=== PATIENT | male | born 1980 | race Caucasian/White ===

== ENCOUNTER 2022-04-24 08:26 | Outpatient (CLI) | payer BC, SELFPAY ==
--- NOTE | 2022-04-24 08:45 | XR_ITS ---
WS: [id number] Exam: XR hip RT 2-3V wo/w pel* [id number] Date/Time of Exam: 04/24/2022 8:48 AM Reason For Exam: hip pain No acute fracture or dislocation noted. The joint compartments are well-maintained. Soft tissue calci fication seen along the lesser trochanter and superior lateral acetabulum. XR/XR hip RT 2-3V wo/w pel* [id number] IMPRESSION: 1. No sign of hip fracture or other significant finding.
--- NOTE | 2022-04-24 08:45 | XR_ITS ---
WS: [id number] Exam: XR ankle RT min 3V* [id number] Date/Time of Exam: 04/24/2022 8:48 AM Reason For Exam: ankle pain Comparison 01/25/2017. No acute fracture or dislocation. 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 Post traumatic degenerative change of the ankle mortise, talar dome and subtalar joints. No soft tissue fo reign bodies. Plantar heel spur. XR/XR ankle RT min 3V* [id number] IMPRESSION: 1. No acute fracture. 2. 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 Posttraumatic degenerative change s of the ankle mortise and subtalar joint.
== END 2022-04-24 08:27 | disposition home or self-care (01) ==
PROVIDERS: PCP Family Medicine; Visit Provider Family Medicine
DX: M25.571 Pain in right ankle and joints of right foot (principal); M25.551 Pain in right hip; M19.90 Unspecified osteoarthritis, unspecified site
CPT/HCPCS: 73502; 73610; 80053; 80061

== ENCOUNTER 2022-05-07 15:35 | Outpatient (CLI) | payer BC, SELFPAY ==
--- NOTE | 2022-05-07 16:00 | MR_ITS ---
WS: [id number] MRI RIGHT ANKLE without CONTRAST. COMPARISON: 04/24/2022 Multiplanar, multisequence imaging is performed without contrast. History: Chronic ankle pain. No acute injury. No acute fractures or marrow edema. Tibiotalar joint space abnormalities. Narrowing of the joint spac e with mild loss of cartilage. Large mid talar dome defect and osteochondral lesion measuring 9.7 mm. There is additional edema in the lateralmost talar dome with asymmetric joint space narrowing. Well- circumscribed, 9 mm osseous density distal to the fibula is probably an ununited fracture from the fi bula. This was also seen radiographically. This is not an acute injury. There is a very tiny amount o f increased signal in the distal fibula with loss of the normal cortex. Calcaneus is negative. Mild n arrowing of the intertarsal joint spaces. There is a small amount of edema along the lateral ankle. No significant joint effusion. Peroneus demi vis and longus negative. There is a very small amount of fluid within the tendon sheaths and surround ing the flexor hallucis longus, flexor digitorum longus and the posterior tibial tendons. Consistent with mild tenosynovitis. No tendon tears are identified. The extensor tendons are negative. Normal striations within the deltoid ligament. Anterior talofibular ligament has increased signal wit h loss of the normal striations suggest an chronic injury. There are mild fibrotic changes. Normal an terior tibiofibular ligament is not identified. There is increased signal in the expected location. N ormal posterior tibiofibular ligament. MR/MR ankle RT wo con* [id number] IMPRESSION: 1. Moderate degenerative changes at the tibiotalar joint space. There is loss of cartilage with asymmetric joint space narrowing. 2. Osteochondral lesion measuring 9.7 mm along the mid talar dome with additio nal edema in the lateral talar dome. Suspect there is a loose body which is not identified. 3. Intertarsal mild osteoarthritis. 4. Mild tenosynovitis within the flexor hallucis longus, digitorum longus and the posterior tibial tendons. 5. Normal peroneal brevis and longus tendons. 6. Abnormal anterior tibiofibular ligament. The ligament is not identified and probably torn. The posterior tibiofibular ligament is normal. 7. No significant joint effusion. 8. No marrow edema or acute fracture. Chronic avulsion fracture distal fibula.
== END 2022-05-07 15:36 | disposition home or self-care (01) ==
PROVIDERS: PCP Family Medicine; Visit Provider Family Medicine
DX: S82.831A Other fracture of upper and lower end of right fibula, initial encounter for closed fracture (principal); X58.XXXA Exposure to other specified factors, initial encounter; M65.871 Other synovitis and tenosynovitis, right ankle and foot; M19.071 Primary osteoarthritis, right ankle and foot
CPT/HCPCS: 73721

== ENCOUNTER 2022-06-01 17:32 | Emergency (ER) | payer BC, SELFPAY ==
[2022-06-01 17:36] VITALS: BP 203/121; PULSE 89; RESP 16; TEMP 36.7; O2SAT 96; BMI 46.5
--- NOTE | 2022-06-01 18:02 | ED_ITS ---
HPI - Wound/Laceration General: Chief Complaint: Wound/Laceration Stated Complaint: right arm lac Time Seen by Provider: 06/01/22 17:49 History of Present Illness: Patient is a 42-year-old male who comes to the ED with laceration to right arm. Patient has a quail pen and and he lifted the tin metal lid and one of the quail flew out. He went to grab the quail and accidentally cut his right forearm on a piece of metal. He was able to control bleeding with pressure bandage. Patient is unsure of last tetanus. Associated symptoms: Denies chills, fever(s), nausea or vomiting Review of Systems Const: Denies: fever(s), chills or fatigue Eyes: Denies: change in vision or eye discomfort ENMT: Denies: throat pain, odynophagia, nasal discharge or nasal congestion Card: Denies: chest pain, palpitations, edema, swelling of feet/ankles, dyspnea on exertion or orthopnea Resp: Denies: dyspnea, productive cough or non-productive cough GI: Denies: abdominal pain, nausea, vomiting, diarrhea, constipation or hematochezia : Denies: flank pain, difficulty urinating, dysuria or hematuria Musc: Denies: neck pain, back pain or extremity swelling Skin/Breast: Reports: new lesions (Laceration right arm); Denies: rash Neuro: Denies: headache(s), numbness in extremities or weakness in extremities [facility] ED PFSH: Medical History (Updated 06/02/22 @ 00:21 by SEBAS Antonio) No pertinent family history Surgical History (Updated 06/02/22 @ 00:21 by SEBAS Antonio) No pertinent past surgical history Physical Exam Const: COMMON NORMALS: patient oriented x3 HENMT: COMMON NORMALS: normocephalic HEAD & SCALP: normocephalic MOUTH: Normal oral and palatal mucosa present THROAT: posterior oropharynx normal and uvula midline Neck/C-Spine: COMMON NORMALS: supple GENERAL: Yes normal visual inspection Resp: COMMON NORMALS: normal respiratory effort, No retractions, No use of accessory muscles and clear to auscultation bilaterally AUSCULTATION: clear to auscultation bilaterally Cardio: COMMON NORMALS: regular rate, regular rhythm, S1 normal heart sound present, S2 normal heart sound present, No gallops present (Cardio), No clicks present (Cardio), No murmurs present (Cardio) and Peripheral pulses 2+ throughout RATE: regular rate RHYTHM: regular rhythm HEART SOUNDS: S1 normal heart sound present and S2 normal heart sound present PERIPHERAL PULSES: Peripheral pulses 2+ throughout GI: COMMON NORMALS: Normal to inspection, nondistended, normoactive bowel sounds present, Soft to palpation, non-tender and no masses PALPATION: Yes Soft to palpation : COMMON NORMALS: Yes no CVA tenderness BLADDER/KIDNEY EXAM: Yes no CVA tenderness Back/Pelvis: COMMON NORMALS: no CVA tenderness Extremity: NARRATIVE EXTREMITY EXAM: Right forearm?2 cm superficial linear laceration noted. No active bleeding seen. No contaminants. Neuro: COMMON NORMALS: patient oriented x3 GAIT: Yes Normal gait present Skin: GENERAL SKIN EXAM: dry skin Procedures Laceration Laceration 1: Site: upper extremity (Forearm) Side (If applicable): right Size (cm): 2 Description: linear Depth: simple, single layer Local Anesthetic: lidocaine 1% Amount of anesthesia used (mL): 5 Pre-repair: irrigated extensively (With normal saline.) Skin layer closed with: nylon Size (cm): 4-0 Number of sutures: 6 Technique: simple, interrupted Course Vital Signs: Vital signs: Vital Signs Temperature 98.1 F 06/01/22 17:36 Pulse Rate 89 06/01/22 17:36 Respiratory Rate 16 06/01/22 17:36 Blood Pressure 203/121 06/01/22 17:36 Pulse Oximetry 96 06/01/22 17:36 Oxygen Delivery Me thod 06/01/22 17:36 MDM - Wound/Laceration Medical Decision Making Patient is a 42-year-old male comes to the ED with laceration to right forearm. He was given updated tetanus here in the ED. Laceration was cleaned and irrigated extensively with normal saline. Lidocaine 1% was used as local and 6 sutures were placed to close laceration site. See procedure note for details. Patient was discharged home instructed on how to care for laceration site. He was told to have sutures removed in the next 7 to 10 days by provider. Return ED precautions given. Patient understood and agreed with plan. Discharge Plan Discharge Patient Disposition: Home Clinical Impression: Forearm laceration Qualifiers: Encounter type: initial encounter Laterality: right Qualified Code(s): S51.811A - Laceration without foreign body of right forearm, initial encounter Condition: Stable Prescriptions: No Action meloxicam 15 mg tablet 15 mg PO ONCE 30 Days Qty: 30 2RF Discharge Orders: Discharge ED (Routine); Ordered 06/01/22 Ordered By: Oscar Childs Referrals: Manuel Chaves DO [Primary Care Provider] - Discharge Diet: Regular Discharge Activity: Limit activity as instructed Patient Instructions: Laceration (DC) Activity Restrictions/Additional Instructions: Keep laceration site clean and dry for the next 48 hours. Clean daily with soap and water and cover with bandage. Watch for signs of infection such as redness, warmth, increased tenderness and puslike drainage. If you see the signs of infection return to the ED, urgent care or PCP for reevaluation. call your PCP to schedule a follow-up appointment for reevaluation and suture removal in about 7- 10 days. Continue taking all home meds. Follow discharge plans as discussed. You can return to the ED if symptoms worsen. Coding Level of Care Code ED Instrument Lens Grinder Apprentice for Brian Watt
[2022-06-01] MEDS: tetanus-dipt-pertussis 0.5 mL SDV IM (18:18)
[2022-06-01] MEDS: lidocaine 1% INJ 10 mL (per mL) INJECTION (18:19)
== END 2022-06-01 18:35 | disposition home or self-care (01) ==
PROVIDERS: Emergency Provider Physician Assistant; PCP Family Medicine
DX: S51.811A Laceration without foreign body of right forearm, initial encounter (principal); W26.8XXA Contact with other sharp object(s), not elsewhere classified, initial encounter; Z23 Encounter for immunization
CPT/HCPCS: 12001; 90471; 90715; 99283

== ENCOUNTER 2022-10-09 05:50 | Day surgery (SDC) | payer BC, SELFPAY ==
[2022-10-09] VITALS (9 sets, daily range): BP systolic 91–159; BP diastolic 48–98; PULSE 70–88; RESP 16–18; TEMP 36.3–36.8; O2SAT 92–96
--- NOTE | 2022-10-09 | XR_ITS ---
WS: [id number] Exam: XR ankle RT 1V [id number] Date/Time of Exam: 10/09/2022 12:00 AM Reason For Exam: JAYLEEN PICS AP and lateral images of the right ankle were obtained for intraoperative purposes.
--- NOTE | 2022-10-09 06:16 | W.PM.OPSUD ---
Surgery/Procedure H&P Update DATE OF PROCEDURE: October 09, 2022 DATE H&P PERFORMED: 09/16/22 CHANGES TO PREVIOUS DOCUMENTATION: None PREOP DIAGNOSIS: Osteochondritis dissecans, right ankle PLANNED PROCEDURE: Operation Date: 10/09/22 07:00 Proposed Procedures p Right ankle scope with osteochondral defect repair 79436, M93.27(Right) - Tereso Overton DPM
--- NOTE | 2022-10-09 06:18 | PM.OP ---
Operative Report Date of procedure: October 09, 2022 Pre-op diagnosis: Preop Diagnosis Osteochondritis dissecans, right ankle Procedure done: Right ankle scope with osteochondral defect repair 2383
[2022-10-09] MEDS: gabapentin 300 mg Capsule PO (06:22)
[2022-10-09] MEDS: CELEcoxib 200 mg Capsule 400 MG PO (06:22)
[2022-10-09] MEDS: sodium chloride 0.9% 1,000 ML 30 ML IV (06:24)
--- NOTE | 2022-10-09 06:56 | ANES.PREANE2 ---
Pre-Anesthetic Assessment Height/Weight: Height 1.75 m Weight 145.15 kg Temp Pulse Resp BP Pulse Ox O2 Del Method 98.3 F 70 16 159/98 96 Room Air 10/09/22 06:06 10/09/22 06:06 10/09/22 06:06 10/09/22 06:06 10/09/22 06:06 10/09/22 06:06 Preop Diagnosis: Osteochondritis dissecans, right ankle Operation Date: 10/09/22 07:00 Proposed Procedures p Right ankle scope with osteochondral defect repair 02764, M93.27(Right) - Tereso Overton DPM Familial anesthetic complications: None Was Beta Marybeth taken within 24 hours: N/A Was Clonidine taken within 24 hours: N/A Last intake: Intake Last Liquid Date 10/08/22 Last Liquid Time 22:00 Last Solid Date 10/08/22 Last Solid Time 19:00 Social No alcohol and No tobacco Exam alert, oriented x 3, clear to auscultation bilaterally and regular rate & rhythm Airway Mallampati: Class III Dentition: full Pulmonary Sleep Apnea Metabolic Morbid Obesity Anesthetic Plan ASA status: 3 Anesthesia: General and Regional (specify below) Risk of > 500 ml blood loss (7ml/kg in children): No Medications/Allergies Home Medications Medication Instructions Recorded Confirmed Last Taken Type Custom Sole Supports #1 ea 06/08/22 10/09/22 Unknown Rx auto titrating cpap #1 ea 09/01/22 10/09/22 Unknown Rx Allergies Allergy/AdvReac Type Severity Reaction Status Date / Time No Known Allergies Allergy Verified 10/09/22 06:04 Current Medications Generic Name Dose Route Start Last Admin Trade Name Carmella PRN Reason Stop Dose Admin Sodium Chloride 1,000 mls @ 30 mls/hr 10/09/22 06:00 10/09/22 06:24 Sodium Chloride 0.9% IV 10/10/22 05:59 30 mls/hr .Q24H SARINA Administration PFSH Anesthesia Medical History No pertinent family history Surgical History No pertinent past surgical history Data Anesthesia Cardiac Studies: No Data to Display
--- NOTE | 2022-10-09 06:57 | ANES.PROC ---
Anesthesia Procedures Procedure/Date: 10/09/22 Nerve Block ^: Nerve Block 1: Main Anesthesia: general anesthesia Time Out Performed: Yes Consent: requested by attending/covering physician, from patient, from other, risks and benefits reviewed and patient agrees to proceed Nerve block location: popliteal (R) Anesthesia monitors applied: pulse oximetry, EKG, BP cuff and oxygen Nerve block position: supine Anesthetic Used: ropivicaine 0.5% (30 ml) and with decadron ( 4 mg) Ultrasound used to: recognize landmarks Nerve Stimulator Used?: No Interscalene/Femoral BLK: 4 stimuplex 21 g needle used for position and inplane approach, visualize local anesthetic spread and no vascular puncture identified Injection: neg aspiration of heme Patient Tolerated Procedure: well Complications: none
[2022-10-09] MEDS: ceFAZolin 3,000 MG in sodium chloride 0.9% (100 ml) 100 ML 200 MG IV (07:11)
--- NOTE | 2022-10-09 09:03 | P.OP_ITS ---
Operative Report Date of procedure: October 09, 2022 Pre-op diagnosis: Preop Diagnosis Osteochondritis dissecans, right ankle Post-op diagnosis: Same Post-op findings: See intraoperative report Procedure done: Right ankle scope with osteochondral defect repair. CPT code 35272 Implants: 4 nylon Arthrex bio cartilage Surgeon: Tereso Overton D.P.M. Clinical Rehabilitation Specialist: Leah Estimated blood loss: Less than 5 76 IV fluids: 5 Urine output: See intraoperative documentation Complications: None Brief History: Does not take any daily medications.? No history of adverse reaction to anesthesia.? Requesting a surgical cleanout of his right ankle.? I discussed risks versus benefits of ankle arthroscopy with extensive debridement with repair of osteochondral defect.? May require nonweightbearing for 6 weeks postoperatively given intraoperative findings.? I informed the patient that a surgical debridement of this nature and OCD repair would essentially buy him additional time and reduce his pain to some degree at best by 50%.? He is too young for total ankle replacement, does not want an ankle fusion.? He understands that further surgical intervention such as TAVR would be a option down the road.? I reviewed at length with the patient, the risks, potential complications, benefits, alternatives, expectations, and typical outcomes associated with the surgery. The risks and potential complications were explained in detail, including but not limited to infection, wound dehiscence or soft tissue complications, bleeding and hematoma, chronic edema, neuritis or nerve damage producing numbness or chronic pain, CRPS, failure to relieve pain o r worsening pain, thick / painful / unsightly scar, limited motion / stiffness, malposition, delayed union, malunion, or nonunion, fracture, reaction to implants, anesthetic complications, venous thromboembolism, and deformity recurrence.? I discussed the notion of no regrets with the patient as it pertains to complications and outcomes. The patient seemed to understand the nature of the proposed care and required convalescence. They asked appropriate questions, answered to their satisfaction. They are aware no guarantees can be made as to a satisfactory outcome and they understand there may be other possible unforeseen complications or outcomes not listed here that will be treated accordingly if they arise. There were no written or implied guarantees given to the patient. They gave informed consent to proceed. Procedure: Mild sedation the patient was brought to the operating room and placed on the operative table in supine position. A timeout was performed. Anesthesia was then administered by the anesthesia service. Popliteal block performed preoperatively per anesthesia to the right lower extremity. Well-padded pneumatic tourniquet applied to the right high calf. The right lower extremity was scrubbed, prepped and draped utilizing normal aseptic technique. Attention was directed to the right anterior ankle An anterolateral portal was created using a 11-blade scalpel, and a blunt trocar was used to gain access into the ankle joint establishing a medial portal just medial to the tibialis anterior tendon and a lateral portal just lateral to the peroneus tertius tendon.. The arthroscope was then introduced into the joint, and the joint was thoroughly inspected. There was evidence of synovitis with hypertrophic synovium and diffuse inflamed synovial lining. Next, a diagnostic arthroscopy was performed, and the pathology was confirmed. Attention was then turned to the talus osteochondral defect. The defect was loca jacob in the medial aspect of the talus, measuring approximately 1.0cm in diameter. The edges of the defect were debrided to a stable rim. A motorized shaver was used to remove the hypertrophic synovium and inflamed synovial tissue within the joint. Multiple areas of loose bodies and fibrillated cartilage were also identified and meticulously debrided. This debridement process was performed until a stable base of healthy cartilage was achieved. Once the debridement was complete, attention was directed towards the talus osteochondral defect repair. A small curette was used to create a bleeding bed within the defect. Ankle joint was dried out and utilizing dry technique the defect was then filled with Arthrex bio cartilage followed by fibrin fixative. Care was taken to ensure proper contouring and press-fit placement of the bio cartilage graft. Fluoroscopic guidance was used to confirm appropriate positioning and mandaeism of the joint surface. The ankle joint was then thoroughly irrigated with normal saline solution to remove any debris or loose fragments. After confirming hemostasis, the arthroscope and instruments were removed from the joint. The anterolateral portal was closed with a single suture, and sterile dressings were applied to the surgical site. The tourniquet was deflated, and adequate hemostasis was achieved. The patient tolerated the procedure well, and no intraoperative complications were encountered. The patient was taken to the recovery room in stable condition. Postoperative Instructions: The patient was provided with postoperative instructions, including elevation of the right leg, icing, and weight-bearing restrictions. The patient was also scheduled for follow-up appointments to monitor the healing process and evaluate the outcome of the procedure. Summary: This operative report describes a right ankle arthroscopy performed for extensive debridement of synovitis and repair of a talus osteochondral defect. The procedure was successful in removing the inflamed synovial tissue and loose bodies, as well as repairing the defect with bio cartilage. The patient's postoperative course will be monitored to assess the effectiveness of the proc edure.
--- NOTE | 2022-10-09 09:06 | PC.NURSE ---
Pt arrived to PACU, resting comfortably, O2 at 6L/min via simple mask. Pt denies any pain or nausea at this time. Dressing and boot to right ankle C/D/I, right toes p/w/d, cap refill <3 seconds. FOB elevated.
--- NOTE | 2022-10-09 09:40 | ANE.PACU2 ---
Inpatient post-anesthesia follow up: Airway intact: Yes Vital signs: Temperature 97.8 F Pulse Rate 88 Respiratory Rate 17 Blood Pressure 114/63 Pulse Oximetry 95 Oxygen Delivery Me thod Room Air Oxygen Flow Rate 6 Fraction of Inspir ed Oxygen Hydration adequate: Yes Nausea and vomiting: Yes Pain level: 1 Mental status: Baseline
== END 2022-10-09 10:05 | disposition home or self-care (01) ==
PROVIDERS: PCP Family Medicine; Visit Provider Podiatrist Foot & Ankle Surgery
PROC: (CPT 29891; principal; 2022-10-09 07:00)
DX: M93.271 Osteochondritis dissecans, right ankle and joints of right foot (principal)
CPT/HCPCS: 29891; 73600; 76000; J0131; J0330; J0690; J1100; J2250; J2371; J2405; J2704; J2710; J2795; J3010; J3490; J7030

== ENCOUNTER → 2023-06-08 08:13 | Outpatient (BNVA) | payer BC, SELFPAY | PROVIDERS: PCP Family Medicine; Visit Provider Family Medicine | DX: Z00.00 Encounter for general adult medical examination without abnormal findings (principal); Z13.6 Encounter for screening for cardiovascular disorders; G47.33 Obstructive sleep apnea (adult) (pediatric) | CPT/HCPCS: 80053; 80061; 83036 ==

== ENCOUNTER → 2023-09-27 07:55 | Outpatient (BNVA) | payer BC, SELFPAY | PROVIDERS: PCP Family Medicine; Visit Provider Family Medicine | DX: I88.9 Nonspecific lymphadenitis, unspecified (principal); T63.301A Toxic effect of unspecified spider venom, accidental (unintentional), initial encounter; E03.9 Hypothyroidism, unspecified | CPT/HCPCS: 80053; 83036; 85025; 86140 ==

== ENCOUNTER → 2023-10-07 14:34 | Outpatient (BNVA) | payer BC, SELFPAY | PROVIDERS: PCP Family Medicine; Visit Provider Family Medicine | DX: R17 Unspecified jaundice (principal); N28.9 Disorder of kidney and ureter, unspecified; I88.9 Nonspecific lymphadenitis, unspecified; E03.9 Hypothyroidism, unspecified | CPT/HCPCS: 80053; 85025; 86140; 86618; 86666; 86757 ==

== ENCOUNTER → 2023-10-18 07:59 | Outpatient (BNVA) | payer BC, SELFPAY | PROVIDERS: PCP Family Medicine; Visit Provider Family Medicine | DX: E03.9 Hypothyroidism, unspecified (principal); I88.9 Nonspecific lymphadenitis, unspecified; N28.9 Disorder of kidney and ureter, unspecified; R17 Unspecified jaundice | CPT/HCPCS: 80053; 85025; 86140; 86160; 86668 ==

== ENCOUNTER 2023-10-19 13:52 | Outpatient (CLI) | payer BC, SELFPAY ==
--- NOTE | 2023-10-19 14:00 | US_ITS ---
WS: [id number] ULTRASOUND SOFT TISSUES bilateral inguinal regions. HISTORY: I88.9 - Nonspecific lymphadenitis, unspecified COMPARISON: None available. TECHNIQUE: 2-D and color Doppler imaging is submitted. RIGHT groin: Small lymph nodes with normal fatty veto at the LEFT groin. No enlarged lymph nodes. No significant asymmetry. LEFT groin: Abnormal LEFT inguinal lymph node. At the LEFT groin there is an enlarged heterogeneous l ymph node with asymmetric thickening of the cortex and displacement of the fatty hilum. Largest lymph node measures 4.3 x 1.9 x 4.3 cm. There is mild increased vascularity. There are additional smaller abnormal lymph nodes in the LEFT groin. US/US soft tissue/extremity 30251 IMPRESSION: LEFT groin lymphadenopathy. Enlarged lymph nodes. Differential includes infecti ous reactive process or neoplasm. Lymph nodes in the RIGHT groin are normal.
== END 2023-10-19 13:53 | disposition home or self-care (01) ==
LOC: RAD 13:53
PROVIDERS: PCP Family Medicine; Visit Provider Family Medicine
DX: I88.9 Nonspecific lymphadenitis, unspecified (principal); I89.8 Other specified noninfective disorders of lymphatic vessels and lymph nodes
CPT/HCPCS: 76882

== ENCOUNTER 2023-12-06 10:20 | Day surgery (SDC) | payer BC, SELFPAY ==
[2023-12-06] VITALS (11 sets, daily range): BP systolic 124–153; BP diastolic 63–94; PULSE 78–99; RESP 6–17; TEMP 36.6–36.7; O2SAT 91–95; BMI 42.7
[2023-12-06] MEDS: sodium chloride 0.9% 1,000 ML 30 ML IV (11:21)
--- NOTE | 2023-12-06 11:34 | P.ANESASSM_ITS ---
Pre-Anesthetic Assessment Height/Weight: Height 1.75 m Weight 131.088 kg O2 Del Method Room Air 12/06/23 10:49 Operation Date: 12/06/23 12:10 Proposed Procedures p exision of left inguinal lymph node, possible incision and drainage of abscess left and or right groin, 75863, R59, L02.214(Bilateral) - Bam Levine DO Familial anesthetic complications: None Was Beta Marybeth taken within 24 hours: N/A Was Clonidine taken within 24 hours: N/A Last intake: Intake Last Liquid Date 12/05/23 Last Liquid Time 23:45 Last Solid Date 12/05/23 Last Solid Time 19:30 Social No alcohol and No tobacco Exam alert, oriented x 3, clear to auscultation bilaterally and regular rate & rhythm Airway Mallampati: Class IV Comments: Comments: Full matias, large neck Grade I airway with MAC 3.5; prior attempt at LMA placement was sucessful, but TV inadequate, so replaced with ETT Pulmonary Sleep Apnea Metabolic Diabetes Mellitus (Pre-DM) and Morbid Obesity [facility] [place] Anesthetic Plan ASA status: 3 Anesthesia: Choice Risk of > 500 ml blood loss (7ml/kg in children): No Medications/Allergies Home Medications Medication Instructions Recorded Confirmed Last Taken Type Custom Sole Supports #1 ea 06/08/22 11/26/23 Unknown Rx auto titrating cpap #1 ea 09/01/22 11/26/23 Unknown Rx Allergies Allergy/AdvReac Type Severity Reaction Status Date / Time No Known Allergies Allergy Verified 11/26/23 08:52 Current Medications Generic Name Dose Route Start Last Admin Trade Name Freq PRN Reason Stop Dose Admin Sodium Chloride 1,000 mls @ 30 mls/hr 12/06/23 10:30 12/06/23 11:21 Sodium Chloride 0.9% IV 12/07/23 10:29 30 mls/hr .Q24H SARINA Administration PFSH Anesthesia Medical History No pertinent family history Surgical History (Updated 12/03/23 @ 09:35 by Grace Pack RN) No pertinent past surgical history Social History Smoking and tobacco/nicotine status: never used tobacco/nicotine Data Anesthesia Cardiac Studies: No Data to Display
[2023-12-06] MEDS: midazolam 1 mg/mL INJ 2 mL 2 MG IVP (11:39)
[2023-12-06] MEDS: scopolamine 1.5 Patch 1 PATCH TRANSDERMA (11:43)
--- NOTE | 2023-12-06 12:00 | W.PM.OPSUD ---
Surgery/Procedure H&P Update DATE OF PROCEDURE: December 06, 2023 DATE H&P PERFORMED: 11/26/23 H&P UPDATE INFORMATION: I have reviewed H&P completed within last 30 days, I have examined patient prior to procedure and No changes to prior documentation PLANNED PROCEDURE: Operation Date: 12/06/23 12:10 Proposed Procedures p exision of left inguinal lymph node, possible incision and drainage of abscess left and or right groin, 24008, R59, L02.214(Bilateral) - Bam Levine DO
[2023-12-06] MEDS: ceFAZolin 2,000 mg SDV 2000 MG IVP (12:21)
[2023-12-06] MEDS: ceFAZolin 1,000 mg SDV 1000 MG IVP (12:56)
[2023-12-06] MEDS: lidocaine-epi 2% PF 1:200,000 20 mL SDV XX (12:57)
--- NOTE | 2023-12-06 13:18 | P.OP_ITS ---
Operative Report Date of procedure: December 06, 2023 Pre-op diagnosis: Abscess and lymphadenopathy left groin Post-op diagnosis: same Procedure done: Incision and drainage of abscess left groin Excisional biopsy lymph node left groin Implants: None Specimens removed/disposition: Cutaneous abscess left groin Lymph node left groin-sent fresh for lymphoma protocol Surgeon: Bam Levine DO Anesthesia: General and Local Estimated blood loss (mL): 50 Complications: None apparent Brief History: This is a very pleasant 43-year-old gentleman came to my office with a several month history of enlarging lymph nodes and abscesses in his bilateral groins. Lymph node in his left groin was the largest. He was treated for tularemia for 2 months and went to see infectious disease at [facility]. They recommended excisional biopsy of left groin lymph node. The risks and benefits were explained and documented. Procedure: Patient was wheeled off to room placed on the OR table in supine position. General tracheal ovation was achieved by department of anesthesia. The left groin was inspected prepped and draped in usual sterile fashion. A timeout was performed. All present were in agreement. Incision was made over an abscess in the left groin purulence was expelled. There were 2 abscesses seen. Decision was made to perform an elliptical excision of skin over this area. After localizing with 2% lidocaine with epinephrine. A 6 cm elliptical oblique incision was made. Dissection was carried down with electrocautery and through the subcutaneous tissue to remove abscess cavities entirely. Just deep to this there was a large likely lymph node. Electrocautery was used to dissect out this mass. Mass was passed off, measuring 5.5 cm in greatest dimension. This was sent fresh, lymphoma protocol. There is a small vein branching off the g reater saphenous vein that was bleeding and clipped with medium clip wires. Further hemostasis was achieved with electrocautery. The area was thoroughly irrigated with normal saline. Hemostasis was noted. Dermis was approximated with 3-0 Vicryl suture. Skin was approximated with 3-0 and 4-0 nylon in a simple interrupted fashion. Sterile dressing was applied. Patient tolerated procedure well.
--- NOTE | 2023-12-06 13:20 | SUR.OPER ---
called pathology and spoke with Jackeline, notified her of specimen for lymph node prep.
[2023-12-06] MEDS: ondansetron 2 mg/ML SDV 2 mL 4 MG IVP (14:00)
--- NOTE | 2023-12-06 15:40 | ANE.PACU2 ---
Inpatient post-anesthesia follow up: Airway intact: Yes Vital signs: Temperature 98.0 F Pulse Rate 78 Respiratory Rate 16 Blood Pressure 132/91 Pulse Oximetry 95 Oxygen Delivery Me thod Room Air Oxygen Flow Rate Fraction of Inspir ed Oxygen Hydration adequate: Yes Nausea and vomiting: No Pain level: 1 Mental status: Baseline
--- NOTE | 2023-12-06 16:04 | SUR.PHASEII ---
15:35 DRESSING DRY AND INTACT.
[2023-12-07 13:06] LABS: Lymphoma Profile (BBPL) See Report
== END 2023-12-06 15:40 | disposition home or self-care (01) ==
PROVIDERS: PCP Internal Medicine; Visit Provider Surgery
PROC: (CPT 10060; principal; 2023-12-06 12:00)
PROC: (CPT 10060; 2023-12-06 12:00)
DX: L02.214 Cutaneous abscess of groin (principal); R59.0 Localized enlarged lymph nodes; G47.30 Sleep apnea, unspecified; E11.9 Type 2 diabetes mellitus without complications; E66.01 Morbid (severe) obesity due to excess calories; Z68.41 Body mass index [BMI] 40.0-44.9, adult
CPT/HCPCS: 10060; 38500; 87015; 87070; 87077; 87102; 87116; 87176; 87186; 87205; 87206; 87801; 88184; 88185; 88304; 88307; 88312; J0330; J0690; J1100; J1170; J2250; J2405; J2704; J3010; J7030